=== PATIENT | male | born 1940 | race Hispanic/Latino ===

== ENCOUNTER 2019-09-19 00:24 | Inpatient (IN) | payer MEDICARE, OTHER ==
[2019-09-19] VITALS (7 sets, daily range): BP systolic 111–126; BP diastolic 66–80
[~2019-09-19] VITALS: Ht 170.2 cm; Wt 81.2 kg
[~2019-09-19 00:24] MED LIST: FLOMAX0.4 MG PO; LOSARTAN POTAS100 MG PO; LOVASTATIN40 MG PO; LUMIGAN2.5 M1 OP; VERAPAMIL ER120 MG PO
[2019-09-19] MEDS ORDERED: ACETAMINOPHEN 325 MG TAB PO ONE (00:30)
[2019-09-19] MEDS ORDERED: CEFEPIME 2 GM/NS 0.9% 100 ML 100 ML IV ONE (00:30)
[2019-09-19 01:03] LABS: BASOPHILS % 0.3 % (0.0-1.0); EOSINOPHILS # (AUTO) 0.1 (0.0-0.4); EOSINOPHILS % 0.9 % (0.0-6.0); HEMATOCRIT 35.4 % (38.2-49.6); LYMPHOCYTES # (AUTO) 0.5 (1.0-3.2); LYMPHOCYTES % 6.6 % (18.0-39.1); MEAN CORPUSCULAR HEMOGLOBIN 28.2 pg (28-32); MEAN CORPUSCULAR HGB CONC 33.9 g/dL (31-35); MEAN CORPUSCULAR VOLUME 83.1 fL (81-99); MONOCYTES # (AUTO) 0.3 (0.2-0.8); NEUTROPHILS # (AUTO) 5.9 (2.1-6.9); NEUTROPHILS % 86.8 % (38.7-80.0); PLATELET COUNT 153 x10e3/uL (140-360); RED BLOOD COUNT 4.26 x10e6/uL (4.3-5.7)
[2019-09-19 01:16] LABS: STREPTOCOCCUS GRP A ANTIGEN NEGATIVE (NEGATIVE)
[2019-09-19 01:23] LABS: INR 1.03; PARTIAL THROMBOPLASTIN TIME 28.5 seconds (23.8-35.5); PROTHROMBIN TIME 14.1 seconds (11.9-14.5)
[2019-09-19 01:25] LABS: INFLUENZAE A&B ANTIGEN (RAPID) NEGATIVE (NEGATIVE)
[2019-09-19 01:27] LABS: ALBUMIN 3.9 g/dL (3.5-5.0); ALBUMIN/GLOBULIN RATIO 1.1 (0.8-2.0); ANION GAP 9.5 mmol/L (8-16); CALCIUM 9.5 mg/dL (8.4-10.2); CREATININE, SERUM 1.22 mg/dL (0.72-1.25); POTASSIUM 3.5 mmol/L (3.5-5.1)
[2019-09-19 01:33] LABS: BILIRUBIN,URINE NEGATIVE (NEGATIVE); CLARITY,URINE CLOUDY (CLEAR); COLOR,URINE YELLOW (YELLOW); KETONES,URINE NEGATIVE (NEGATIVE); LEUKOCYTE ESTERASE ,URINE 1+ (NEGATIVE); NITRITE,URINE POSITIVE (NEGATIVE); PROTEIN,URINE DIPSTICK TRACE (NEGATIVE); URINE UROBILINOGEN 1 mg/dL (0.2 - 1)
[2019-09-19 01:42] LABS: BACTERIA,URINE MANY /HPF; EPITHELIAL CELLS,URINE FEW /LPF; WBC,URINE (MAN) >50 /HPF (0-5)
[2019-09-19 01:43] LABS: RENAL EPITHELIAL CELLS,URINE FEW
--- NOTE | 2019-09-19 01:58 | Diagnostic Imaging Report ---
EXAMINATION: CHEST SINGLE (PORTABLE) INDICATION: Fever COMPARISON: None FINDINGS: TUBES and LINES: None. LUNGS: Low lung volumes. There are patchy bibasilar opacities. Central vascular congestion. PLEURA: No pleural effusion or pneumothorax. HEART AND MEDIASTINUM: The cardiomediastinal silhouette is unremarkable. BONES AND SOFT TISSUES: No acute osseous lesion. Soft tissues are unremarkable. UPPER ABDOMEN: No free air under the diaphragm. IMPRESSION: Patchy bibasilar opacities, which may represent infection in the setting of fever. Atelectasis may have a similar appearance. Signed by: Dr. Radha Day MD on 09/19/2019 1:55 AM
--- OUTSIDE RECORDS SUMMARY | 2019-09-19 02:12 | XMS REPORT ---
[facility] Address Unknown Phone Unavailable Care Team Providers Care Wall Insulation Sprayer Name Role Phone Yue HURD Unavailable Unavailable Problems This patient has no known problems. Allergies, Adverse Reactions, Alerts This patient has no known allergies or adverse reactions. Medications This patient has no known medications. Results Test Description Test Time Test Comments Text Results Atomic Results Result Comments CHEST SINGLE (PORTABLE) 2019-09-19 01:47:00 [facility] [address] [place] [address] Patient Name: IRINA GUAN MR #: [id number] : 1940 Age/Sex: 79/M Req #: [id number] Adm Physician: Ordered by: KHALIDA HURD MD Report #: [id number] Location: ER Room/Bed: Procedure: [id number] DX/CHEST SINGLE (PORTABLE) Exam Date: 09/19/19 Exam Time: 0100 REPORT STATUS: Signed EXAMINATION: CHEST SINGLE (PORTABLE) INDICATION: Fever COMPARISON: None FINDINGS: TUBES and LINES: None. LUNGS: Low lung volumes. There are patchy bibasilar opacities. Central vascular congestion. PLEURA: No pleural effusion or pneumothorax. HEART AND MEDIASTINUM: The cardiomediastinal silhouette is unremarkable. BONES AND SOFT TISSUES: No acute osseous lesion. Soft tissues are unremarkable. UPPER ABDOMEN: No free air under the diaphragm. IMPRESSION: Patchy bibasilar opacities, which may represent infection in the setting of fever. Atelectasis may have a similar appearance. Signed by: Dr. Jackelin Leyva MD on 09/19/2019 1:55 AM Dictated By: JACKELIN LEYVA MD 4 Transcribed By: ASMITA on 09/19/19154 COPY TO: KHALIDA HURD MD
[2019-09-19] MEDS ORDERED: SODIUM CHLORIDE 0.9% 1000ML 1,000 ML IV ONE (02:15)
[2019-09-19] MEDS ORDERED: ONDANSETRON HCL INJ 2MG/ML 2ML 2 MG/ML VIAL IV PRN ×2 (02:15→09:45)
[2019-09-19] MEDS ORDERED: ACETAMINOPHEN 325 MG TAB PO PRN (02:15)
[2019-09-19] MEDS: AZITHROMYCIN 500MG/NS 250 ML 250 ML IV SCH (03:08)
[2019-09-19] MEDS ORDERED: POTASSIUM CHLO20 ME1 PO (05:43)
[2019-09-19] MEDS ORDERED: AMLODIPINE BESYL5 MG PO (05:43)
[2019-09-19] MEDS ORDERED: AVODART0.5 MG PO (05:43)
[2019-09-19] MEDS ORDERED: FUROSEMIDE40 MG PO (05:43)
[2019-09-19] MEDS ORDERED: CEFEPIME 2 GM/NS 0.9% 100 ML 100 ML IV SCH (06:00)
--- NOTE | 2019-09-19 06:40 | NUR ---
PATIENT ARRIVED TO FLOOR IN STABLE CONDITION, GAVE REPORT TO ONCOMING ADMIT NURSE TO COMPLETE ADMIT.
[2019-09-19] MEDS ORDERED: VANCOMYCIN 1GM/NS 250 ML 250 ML IV ONE (08:15)
[2019-09-19] MEDS: CEFEPIME 2 GM/NS 0.9% 100 ML 100 ML IV SCH ×3 (09:00→21:37)
--- NOTE | 2019-09-19 09:12 | Consultation ---
DATE OF CONSULTATION: Pulmonary Critical Care Consultation CHIEF COMPLAINT: Fever, chills, and confusion. HISTORY OF PRESENT ILLNESS: The patient is a 79-year-old man. He has a history of hearing loss, hypertension, and prostate disease. He came to the emergency department complaining of fatigue. He reports decreased appetite. He denies cough. He denies shortness of breath, nausea or vomiting. PAST MEDICAL HISTORY: 1. Benign prostatic hypertrophy. 2. Prior cardiac disease. 3. Hypertension. 4. Glaucoma. PAST SURGICAL HISTORY: Not obtainable at this time. SOCIAL HISTORY: The patient is not an active smoker or drinker. ALLERGIES: NO KNOWN DRUG ALLERGIES. REVIEW OF SYSTEMS: The patient is afebrile. He is not complaining of headache. He has no neck pain. He has no sore throat. He is not having any chest pain. He denies any shortness of breath or cough. He has no abdominal pain. He has no nausea or vomiting. He has no leg edema. He has no focal neurological abnormalities. PHYSICAL EXAMINATION: VITAL SIGNS: The patient is afebrile. The blood pressure is 117/68 and the saturation is 100% on 3 L. HEENT: Shows no facial swelling or erythema. CARDIAC: Reveals a regular rate and rhythm with normal S1, S2. LUNGS: Auscultation of lungs shows clear breath sounds bilaterally. There is no wheezing. ABDOMEN: Soft, nontender. There is no rebound or guarding. EXTREMITIES: Show no leg edema or calf tenderness. There is no cyanosis or clubbing. RADIOGRAPHIC DATA: Chest x-ray shows patchy bibasilar opacities. LABORATORY DATA: BUN to creatinine ratio is 13 to 1.22. The other electrolytes are within normal limits. The total bilirubin is 4.2 and the AST is 42. PT and INR are normal. Urinalysis shows greater than 50 white blood cells. IMPRESSION: 1. Pneumonia, unspecified. 2. Urinary tract infection with sepsis, present on admission. 3. Elevated total bilirubin. 4. Prostatic hypertrophy. 5. Hearing loss. PLAN: 1. Broad-spectrum antibiotics to cover for pneumonia and urinary tract infection. 2. Repeat laboratory values tomorrow including creatinine and bilirubin. 3. Head of bed as tolerated. 4. Continue oxygen. Rudi Pineda MD [facility]/MODL /[id number]
--- NOTE | 2019-09-19 09:36 | NUR ---
H&P cc: sob HPI: 79yoM, PCP unknown, developed sob, found to have multifocal PNA and UTI, with sepsis. Pt uanble to provide history. PMH: BPH, Hypertensive heart ds, CAD, hearing deficits PSHx: unknown Allergies; see emr FH/SH; unknown meds; see MAR rOS: unobtianable v/s revd PE tired appearing anicteric ns1s2 reduced BS soft ntnd no e/t skin dry flat affect alert; awake; hearing deficits labs/meds revd A/P: 79yoM Multifocal PNA- cefepime/azithromycin/vanco/IVF; coronavirus negative SWAPNA- IVF Severe sepsis- IVF UTI- IV cefepime Hyperbilirubinemia- check hepatitis panel BPH- flomax Hypertensive heart ds- hold losartan; cont ccb CAD- ccb; check lipids Hyperglycemia- screen for DM and HLD Overweight- check hab1c/lipids BMI 28 Prop: scd; pepcid dispo: Bob Anthony MD, PhD.
[2019-09-19] MEDS ORDERED: ZOLPIDEM TARTRATE 5 MG TAB PO PRN (09:45)
[2019-09-19] MEDS ORDERED: DOCUSATE SODIUM 100 MG CAP PO PRN (09:45)
--- NOTE | 2019-09-19 09:45 | NUR ---
The pt. is in bed and denies pain or discomfort. His daughter called and he spoke with her.
[2019-09-19 09:52] LABS: CREATINE KINASE MB 2.4 ng/mL (0-5.0)
[2019-09-19] MEDS: DUTASTERIDE 0.5 MG CAP PO SCH (09:53)
[2019-09-19] MEDS: TAMSULOSIN HCL 0.4 MG CAP PO SCH (09:53)
[2019-09-19] MEDS: AMLODIPINE BESYLATE 5 MG TAB PO SCH (09:53)
[2019-09-19 16:46] LABS: CREATINE KINASE MB 2.3 ng/mL (0-5.0)
--- NOTE | 2019-09-19 19:20 | NUR ---
RECEIVED THE PATIENT IN REPORT.LYEING IN THE BED.NO PAIN VOICED.DENIED ANY NEEDS.BED LOCKED AND IN LOWEST POSITION.STABLE CONDITION.
[2019-09-19] MEDS: BIMATOPROST(OPTH) 2.5 ML BOTTLE OP SCH (21:36)
[2019-09-19] MEDS: SIMVASTATIN 40 MG TAB PO SCH (21:37)
--- NOTE | 2019-09-19 21:59 | Consultation ---
DATE OF CONSULTATION: REASON FOR CONSULTATION: Fever. HISTORY OF PRESENT ILLNESS: A 79-year-old male with history of hearing loss, hypertension, prostate disease, came to the emergency room with fever, chills, fatigue, and not feeling well. The patient was admitted. I was asked to see him. Blood cultures obtained and urine cultures obtained. His white count was 6.79, hemoglobin 12. His COVID-19 was negative. Influenza A and B were negative. Sodium 137, potassium 3.5, creatinine of 1.22. REVIEW OF SYSTEMS: Otherwise negative. PHYSICAL EXAMINATION: GENERAL: He is currently alert, oriented, does not seem in acute distress. VITAL SIGNS: Stable. Currently afebrile. HEENT: He is not icteric. NECK: Supple. CHEST: Clear. HEART: S1 and S2. ABDOMEN: Soft. IMPRESSION: 1. Pneumonia present on admission. 2. Fever, concerned about urinary tract infection. PLAN: 1. Continue Rocephin. 2. Continue azithromycin. 3. Clinically, seems to be getting better. We will follow. MD YVES Decker/JEWELL /[id number]
[2019-09-20] VITALS (7 sets, daily range): BP systolic 117–131; BP diastolic 67–81
[2019-09-20] MEDS: AZITHROMYCIN 500MG/NS 250 ML 250 ML IV SCH (02:30)
[2019-09-20] MEDS: CEFEPIME 2 GM/NS 0.9% 100 ML 100 ML IV SCH ×3 (06:16→22:00)
[2019-09-20 06:31] LABS: BASOPHILS % 0.2 % (0.0-1.0); EOSINOPHILS % 0.9 % (0.0-6.0); HEMATOCRIT 32.6 % (38.2-49.6); HEMOGLOBIN 10.9 g/dL (14.0-18.0); LYMPHOCYTES # (AUTO) 0.9 (1.0-3.2); MEAN CORPUSCULAR HEMOGLOBIN 27.9 pg (28-32); MEAN CORPUSCULAR HGB CONC 33.4 g/dL (31-35); MEAN CORPUSCULAR VOLUME 83.6 fL (81-99); MONOCYTES # (AUTO) 0.5 (0.2-0.8); MONOCYTES % 10.9 % (4.4-11.3); NEUTROPHILS # (AUTO) 3.2 (2.1-6.9); NEUTROPHILS % 67.8 % (38.7-80.0); PLATELET COUNT 132 x10e3/uL (140-360); RED CELL DISTRIBUTION WIDTH 13.8 % (11.7-14.4)
[2019-09-20 06:52] LABS: ALANINE AMINOTRANSFERASE 32 IU/L (0-55); ALKALINE PHOSPHATASE 70 IU/L (40-150); ANION GAP 9.4 mmol/L (8-16); BLOOD UREA NITROGEN 13 mg/dL (7-26); BUN/CREATININE RATIO 14 (6-25); CALCIUM 8.3 mg/dL (8.4-10.2); CARBON DIOXIDE 26 mmol/L (22-29); CHLORIDE 108 mmol/L (98-107); CREATININE, SERUM 0.93 mg/dL (0.72-1.25); EST GLOMERULAR FILTRATION RATE > 60 ML/MIN (60-); GLUCOSE 97 mg/dL (74-118); POTASSIUM 3.4 mmol/L (3.5-5.1); SODIUM 140 mmol/L (136-145)
[2019-09-20 07:04] LABS: CREATINE KINASE 100 IU/L (30-200)
--- NOTE | 2019-09-20 07:05 | NUR ---
BED SIDE SHIFT REPORT GIVEN TO ONCOMING RN.STABLE CONDITION.
--- NOTE | 2019-09-20 08:01 | NUR ---
IM- progress note O/N see below ROS: unobtianable v/s revd PE tired appearing anicteric ns1s2 reduced BS soft ntnd no e/t skin dry flat affect alert; awake; hearing deficits labs/meds revd A/P: 79yoM Multifocal PNA- cefepime/azithromycin/vanco/IVF; coronavirus negative SWAPNA- IVF Severe sepsis- IVF UTI- IV cefepime Hyperbilirubinemia- check hepatitis panel BPH- flomax Hypertensive heart ds- hold losartan; cont ccb CAD- ccb; check lipids Hyperglycemia- screen for DM and HLD Overweight- check hab1c/lipids BMI 28 Prop: scd; pepcid dispo: 4-25 cont care; replace K; T.Bili improving; Bob Anthony MD, PhD.
[2019-09-20] MEDS ORDERED: POTASSIUM CHLORIDE 20 MEQ TAB CR PO STA (08:03)
[2019-09-20] MEDS: DUTASTERIDE 0.5 MG CAP PO SCH (09:31)
[2019-09-20] MEDS: AMLODIPINE BESYLATE 5 MG TAB PO SCH (09:31)
[2019-09-20] MEDS: TAMSULOSIN HCL 0.4 MG CAP PO SCH (09:31)
--- NOTE | 2019-09-20 13:42 | NUR ---
INFECTIOUS DISEASE PROGRESS NOTE SUBJECTIVE: The patient is doing well today. He was undergoing cystoscopies with the nephrostomy tube removal. ROS: Positive for fatigue Negative all 14 points unless otherwise noted. PHYSICAL EXAMINATION: VITAL SIGNS: Temperature is 97.7 pulse 70, respiratory rate 18, blood pressure 128/90, pulse ox 100% on room air. GENERAL: Not in acute distress. Alert and oriented x3. Cooperative on examination. HEENT: Head; normocephalic, atraumatic. Eyes; pupils are equal, round, and reactive to light bilaterally. Extraocular movements intact bilaterally. Throat; no evidence of erythema or exudates in the posterior pharynx. Has poor dentition. NECK: Supple. Good range of motion. PULMONARY: Clear to auscultation bilaterally. No wheezing, no rales, no rhonchi, no crackles appreciated. CARDIOVASCULAR: Positive S1 and S2. No murmurs, rubs, or gallops appreciated. ABDOMEN: Soft, nondistended, and nontender to palpation. Bowel sounds present. MUSCULOSKELETAL: Strength is 5/5 throughout. No evidence of any muscle deficits on examination. No weakness appreciated. NEUROLOGIC: Cranial nerve II through XII grossly intact. No evidence of any neurological deficits on exam. SKIN: Intact. Warm to touch. Good cap refill. PSYCHIATRIC: Normal affect and mood. EXTREMITIES: No edema. Good range of motion throughout. LABORATORY DATA: Reviewed and noted IMAGING STUDIES: Patchy bibasilar opacities, which may represent infection in the setting of fever. Atelectasis may have a similar appearance. IMPRESSION 1. Left ureteral nephrolithiasis stone status post cystoscopy with laser and left stent placement with left nephrostomy tube removal performed on 09/19/2019. 2. Sepsis secondary to bacteremia and ESBL E coli urinary tract infection. 3. Hypotension, resolved. 4. BPH 5. Glaucoma 6. Pnuemonia PLAN: 09/20/19: Cefepime and Flaygl, final urine culture pending. Blood cultures negative at this time. Afebrile. Supportive care. Discussed with Dr. Phu Guzmán
--- NOTE | 2019-09-20 14:20 | NUR ---
RECEIVED HH ORDER , DISCUSSED WITH PT, HE WAS IN AGREEMENT WITH THE PLAN, PT WAS INFORMED OF THE FREEDOM TO CHOOSE THE AGENCY, DISCUSSED LIST OF AGENCIES IN NETWORK WITH HIS INSURANCE, HE CHOSE [facility] - [id number].CHOICE LETTER SIGNED AND IS PLACED IN THE CHART. FAXED CLINICALS TO [facility] , FAX CONFIRMATION RECEIVED.
[2019-09-20] MEDS ORDERED: ONDANSETRON HCL 4 MG ORAL DISINTEGRATING TAB PO PRN (16:00)
--- NOTE | 2019-09-20 16:02 | Progress Note ---
DATE: SUBJECTIVE: The patient has no new complaints. He is afebrile. PHYSICAL EXAMINATION: VITAL SIGNS: The blood pressure is 117/71. The saturation is 100% on 2 L. HEENT: Shows no facial swelling or erythema. CARDIAC: Reveals a regular rate and rhythm with normal S1 and S2. There are no murmurs or rubs. LUNGS: Auscultation of lungs reveals clear breath sounds bilaterally. There is no wheezing. ABDOMEN: Soft and nontender. No rebound or guarding. The patient is hard of hearing. LABORATORY DATA: White blood cell count is 4.7 and the hemoglobin is 10.9. The platelet count is 132. BUN to creatinine ratio is normal. The other electrolytes are within normal limits. IMPRESSION: 1. Acute kidney injury. 2. Community-acquired pneumonia. 3. Urinary tract infection with sepsis, present on admission. 4. Prostatic hypertrophy. 5. Hypertension. 6. Hyperbilirubinemia. PLAN: 1. Complete current antibiotics. 2. Continue to monitor liver tests. 3. Await culture results. 4. Ativan as tolerated. Rudi Pineda MD [facility]/MOD[facility] /[id number]
--- NOTE | 2019-09-20 17:15 | NUR ---
PT IN BED SLEEPING NO DISTRESS NTOED,DENIES PAIN,
--- NOTE | 2019-09-20 20:03 | NUR ---
Received change of shift report from AM nurse. Walking rounds completed.
[2019-09-20] MEDS: SIMVASTATIN 40 MG TAB PO SCH (20:36)
[2019-09-20] MEDS: BIMATOPROST(OPTH) 2.5 ML BOTTLE OP SCH (20:36)
[2019-09-21] VITALS (7 sets, daily range): BP systolic 130–142; BP diastolic 68–89
--- NOTE | 2019-09-21 | NUR ---
Patient spainish speaking. Pt blind. Asst to bathroom with walker. Patient denies pain at this time. IV right FA intact and patent. Patient incontinent with depend. Continue monitor.
[2019-09-21] MEDS: AZITHROMYCIN 500MG/NS 250 ML 250 ML IV SCH (02:15)
--- NOTE | 2019-09-21 03:56 | NUR ---
Patient resting quitly at this time. Continue monitor.
[2019-09-21] MEDS: CEFEPIME 2 GM/NS 0.9% 100 ML 100 ML IV SCH (06:00)
[2019-09-21 07:16] LABS: ANION GAP 10.9 mmol/L (8-16); BLOOD UREA NITROGEN 15 mg/dL (7-26); BUN/CREATININE RATIO 17 (6-25); CALCIUM 8.8 mg/dL (8.4-10.2); CARBON DIOXIDE 26 mmol/L (22-29); CHLORIDE 108 mmol/L (98-107); CREATININE, SERUM 0.87 mg/dL (0.72-1.25); EST GLOMERULAR FILTRATION RATE > 60 ML/MIN (60-); GLUCOSE 98 mg/dL (74-118); POTASSIUM 3.9 mmol/L (3.5-5.1); SODIUM 141 mmol/L (136-145)
--- NOTE | 2019-09-21 07:30 | NUR ---
PT IN BED SLEEPING ,NO S/S DISCOMFORT.
[2019-09-21] MEDS: TAMSULOSIN HCL 0.4 MG CAP PO SCH (09:00)
[2019-09-21] MEDS: AMLODIPINE BESYLATE 5 MG TAB PO SCH (09:00)
[2019-09-21] MEDS: DUTASTERIDE 0.5 MG CAP PO SCH (09:00)
--- NOTE | 2019-09-21 09:22 | NUR ---
IM- progress note O/N see below ROS: unobtianable v/s revd PE tired appearing anicteric ns1s2 reduced BS soft ntnd no e/t skin dry flat affect alert; awake; hearing deficits labs/meds revd A/P: 79yoM Multifocal PNA- cefepime/azithromycin/vanco/IVF; coronavirus negative SWAPNA- IVF Severe sepsis- IVF UTI- IV cefepime Hyperbilirubinemia- check hepatitis panel BPH- flomax Hypertensive heart ds- hold losartan; cont ccb CAD- ccb; check lipids Hyperglycemia- screen for DM and HLD Overweight- check hab1c/lipids BMI 28 Prop: scd; pepcid dispo: 4-25 cont care; replace K; T.Bili improving; 4-26 E.coli UTI- abx per ID; d/c planning; Bob Anthony MD, PhD.
--- NOTE | 2019-09-21 12:30 | NUR ---
PT ASSISTED UP TO BR MIN ASSIST
--- NOTE | 2019-09-21 12:36 | NUR ---
INFECTIOUS DISEASE PROGRESS NOTE SUBJECTIVE: The patient is doing well today. ROS: Positive for fatigue Negative all 14 points unless otherwise noted. PHYSICAL EXAMINATION: VITAL SIGNS: Temperature is 97.6 pulse 72, respiratory rate 18, blood pressure 137/850 GENERAL: Not in acute distress. Alert and oriented x3. Cooperative on examination. HEENT: Head; normocephalic, atraumatic. Eyes; pupils are equal, round, and reactive to light bilaterally. Extraocular movements intact bilaterally. Throat; no evidence of erythema or exudates in the posterior pharynx. Has poor dentition. NECK: Supple. Good range of motion. PULMONARY: Clear to auscultation bilaterally. No wheezing, no rales, no rhonchi, no crackles appreciated. CARDIOVASCULAR: Positive S1 and S2. No murmurs, rubs, or gallops appreciated. ABDOMEN: Soft, nondistended, and nontender to palpation. Bowel sounds present. MUSCULOSKELETAL: Strength is 5/5 throughout. No evidence of any muscle deficits on examination. No weakness appreciated. NEUROLOGIC: Cranial nerve II through XII grossly intact. No evidence of any neurological deficits on exam. SKIN: Intact. Warm to touch. Good cap refill. PSYCHIATRIC: Normal affect and mood. EXTREMITIES: No edema. Good range of motion throughout. LABORATORY DATA: Reviewed and noted IMAGING STUDIES: Patchy bibasilar opacities, which may represent infection in the setting of fever. Atelectasis may have a similar appearance. IMPRESSION 1. Left ureteral nephrolithiasis stone status post cystoscopy with laser and left stent placement with left nephrostomy tube removal performed on 09/19/2019. 2. Sepsis secondary to bacteremia and ESBL E coli urinary tract infection. 3. Hypotension, resolved. 4. BPH 5. Glaucoma 6. Pnuemonia PLAN: 09/21/19 Reviewed culture results. Can change to Rocephin while hospitalized. Finish 3 days of azithromycin. Repeat CXR in AM. Can potentially discharge with oral antibiotics when primary team is ready. 09/20/19: Cefepime and Flagyl, final urine culture pending. Blood cultures negative at this time. Afebrile. Supportive care. Discussed with Dr. Phu Guzmán
[2019-09-21] MEDS ORDERED: CEFTRIAXONE SOD 1 GM/NS 50 ML 50 ML IV SCH (12:45)
--- NOTE | 2019-09-21 17:30 | NUR ---
UP IN BED DENIES PAIN ,NO DISTRESS NTOED.
--- NOTE | 2019-09-21 18:36 | Progress Note ---
DATE: SUBJECTIVE: The patient has no new complaints. He denies any fever. He has not been out of bed walking yet. He denies nausea or vomiting. He denies abdominal pain or dysuria. PHYSICAL EXAMINATION: VITAL SIGNS: The patient is afebrile. The blood pressure is 142/68 and saturation is 98%. The pulse is 84. HEENT: Shows no facial swelling or erythema. CARDIAC: Reveals regular rate and rhythm with normal S1 and S2. LUNGS: Auscultation of lungs reveals decreased breath sounds at the bases. There is no wheezing. ABDOMEN: Soft and nontender. There is no rebound or guarding. EXTREMITIES: Shows no leg edema or calf tenderness. LABORATORY DATA: Electrolytes, BUN and creatinine are within normal limits. IMPRESSION: 1. Escherichia coli urinary tract infection with sepsis, present on admission. 2. Community-acquired pneumonia. 3. Acute kidney injury. 4. Prostatic hypertrophy. 5. Hyperbilirubinemia. PLAN: 1. Complete current antibiotics. 2. Repeat chemistries tomorrow to monitor bilirubin and kidney function. 3. Repeat CBC tomorrow morning. 4. Continue to monitor blood pressure. 5. Out of bed as tolerated. MD MARIE Garcia/JEWELL /[id number]
--- NOTE | 2019-09-21 20:00 | NUR ---
Received change of shift report from AM nurse. Walking rounds completed.
[2019-09-21] MEDS: SIMVASTATIN 40 MG TAB PO SCH (21:00)
[2019-09-21] MEDS: BIMATOPROST(OPTH) 2.5 ML BOTTLE OP SCH (21:00)
[2019-09-22] VITALS: BP 138/69
[2019-09-22] MEDS: AZITHROMYCIN 500MG/NS 250 ML 250 ML IV SCH (02:15)
[2019-09-22 04:00] VITALS: BP 128/70
[2019-09-22 05:42] LABS: BASOPHILS % 0.4 % (0.0-1.0); EOSINOPHILS # (AUTO) 0.2 (0.0-0.4); EOSINOPHILS % 3.6 % (0.0-6.0); HEMATOCRIT 31.3 % (38.2-49.6); HEMOGLOBIN 10.6 g/dL (14.0-18.0); LYMPHOCYTES # (AUTO) 1.4 (1.0-3.2); MEAN CORPUSCULAR HEMOGLOBIN 27.8 pg (28-32); MEAN CORPUSCULAR HGB CONC 33.9 g/dL (31-35); MEAN CORPUSCULAR VOLUME 82.2 fL (81-99); MONOCYTES # (AUTO) 0.5 (0.2-0.8); MONOCYTES % 10.1 % (4.4-11.3); NEUTROPHILS # (AUTO) 3.1 (2.1-6.9); NEUTROPHILS % 58.5 % (38.7-80.0); PLATELET COUNT 160 x10e3/uL (140-360); RED BLOOD COUNT 3.81 x10e6/uL (4.3-5.7); RED CELL DISTRIBUTION WIDTH 13.5 % (11.7-14.4)
[2019-09-22 06:16] LABS: ALANINE AMINOTRANSFERASE 22 IU/L (0-55); ALBUMIN/GLOBULIN RATIO 0.9 (0.8-2.0); ALKALINE PHOSPHATASE 76 IU/L (40-150); ANION GAP 9.5 mmol/L (8-16); BLOOD UREA NITROGEN 18 mg/dL (7-26); BUN/CREATININE RATIO 20 (6-25); CALCIUM 8.7 mg/dL (8.4-10.2); CARBON DIOXIDE 26 mmol/L (22-29); CHLORIDE 108 mmol/L (98-107); CREATININE, SERUM 0.92 mg/dL (0.72-1.25); EST GLOMERULAR FILTRATION RATE > 60 ML/MIN (60-); GLUCOSE 98 mg/dL (74-118); POTASSIUM 3.5 mmol/L (3.5-5.1); SODIUM 140 mmol/L (136-145)
[2019-09-22] MEDS ORDERED: KEFLEX500 MG PO (06:36)
[2019-09-22] MEDS ORDERED: ZITHROMAX500 MG PO (06:36)
--- NOTE | 2019-09-22 06:40 | NUR ---
D/C summary Principal Dx: Multifocal PNA- cefepime/azithromycin/vanco/IVF; coronavirus negative SWAPNA- IVF Severe sepsis- IVF UTI- IV cefepime Hyperbilirubinemia- check hepatitis panel [place]condary dx: BPH- flomax Hypertensive heart ds- hold losartan; cont ccb CAD- ccb; check lipids Hyperglycemia- screen for DM and HLD Overweight- check hab1c/lipids BMI 28 Prop: scd; pepcid dispo: 4-25 cont care; replace K; T.Bili improving; 4-26 E.coli UTI- abx per ID; d/c planning; f/u pcp 1 week stable d/c>35mins d/c home with azithromycin and keflex for 4 more days; Bob Anthony MD, PhD.
--- NOTE | 2019-09-22 07:00 | NUR ---
Received bedside shift report from off going nurse. Patient is resting in bed. No acute distress noted. Call light within reach. Bed in the lowest position. Bed alarm on.
[2019-09-22 08:20] VITALS: BP 130/65
[2019-09-22 08:26] VITALS: BP 130/65
[2019-09-22] MEDS: DUTASTERIDE 0.5 MG CAP PO SCH (08:27)
[2019-09-22] MEDS: TAMSULOSIN HCL 0.4 MG CAP PO SCH (08:28)
[2019-09-22] MEDS: AMLODIPINE BESYLATE 5 MG TAB PO SCH (08:28)
--- NOTE | 2019-09-22 09:57 | Diagnostic Imaging Report ---
EXAMINATION: CHEST SINGLE (PORTABLE) INDICATION: Pneumonia COMPARISON: Chest radiograph 09/19/2019 FINDINGS: LINES/TUBES:EKG leads overlie the chest. LUNGS:The lungs are moderately inflated. There is perihilar fullness and indistinctness of the pulmonary vasculature. No focal consolidation. PLEURA:No pleural effusion or pneumothorax. MEDIASTINUM:The cardiomediastinal silhouette appears normal in size and shape. Atherosclerotic calcifications of the thoracic aorta. BONES/SOFT TISSUES:No acute osseous injury. ABDOMEN:No free air under the diaphragm. IMPRESSION: Mild central pulmonary vascular congestion. No focal pneumonia. Signed by: Lissette Pugh MD on 09/22/2019 9:54 AM
[2019-09-22 11:00] VITALS: BP 128/72
--- NOTE | 2019-09-22 11:19 | NUR ---
Received discharge order from Dr. Anthony, patient is in stable condition. No IV line present upon arrival to shift. Discharge teaching provided to daughter Saniya Gallardo over the phone, also paperwork signed by daughter via phone. Discharge folder on hand with discharge paperwork and prescriptions. All personal items on hand. Patient accompanied to private auto via wheelchair by staff.
--- NOTE | 2019-09-22 11:58 | Progress Note ---
DATE: SUBJECTIVE: The patient is seen and evaluated. Discussed with the nurse. Currently comfortable in bed. REVIEW OF SYSTEMS: No nausea, no vomiting, no fever, no chills, no chest pain, no shortness of breath. PHYSICAL EXAMINATION: VITAL SIGNS: Temperature is 99.8, pulse is 79, respirations 18, and blood pressure 130/65. GENERAL: Comfortable in bed. Legally blind. CV: S1 and S2. CHEST: Equal expansion. Clear to auscultation. No acute distress. ABDOMEN: Soft and nontender. No distention. HEENT: Moist. No pallor. No JVD. EXTREMITIES: No significant edema. No acute finding. MEDICATIONS: Medications reviewed. As far as Infectious Disease point of view, the patient is on Rocephin and Zithromax. LABORATORY STUDIES: White blood cells 5.23, hemoglobin 10.6, platelet 160. Sodium 140, potassium 3.5 creatinine 0.92. SEROLOGY: COVID-19 not detected on 09/19/2019. Hepatitis panel pending. Influenza A/B antigen and group A strep screen is negative. MICROBIOLOGY: Urine cultures E coli. Blood cultures negative. Throat cultures negative. Urine culture E coli was on 09/19/2019. RADIOLOGY STUDIES: Chest x-ray showed mild central pulmonary vascular congestion. No focal pneumonia. ASSESSMENT AND PLAN: 1. Sepsis on admission, resolved. 2. Abnormal urine culture as mentioned above. 3. Hypertension. 4. Benign prostatic hypertrophy. 5. Discharge planning in progress with oral antibiotics. Discussed with Dr. Bay in details. Please refer to chart for more information. Dictated by Anthony Jerry PA-C (Al) Daniel Bay MD /MODL /[id number]
== END 2019-09-22 11:23 | disposition home or self-care (01) | DRG 871 ==
LOC: ER 00:24 → ERHOLD 02:05 → MED/SURG3 06:16
PROVIDERS: ADMIT Internal Medicine; ATTEND Internal Medicine
DX: A41.51 Sepsis due to Escherichia coli [E. coli] (principal); J18.9 Pneumonia, unspecified organism; N39.0 Urinary tract infection, site not specified; N40.0 Benign prostatic hyperplasia without lower urinary tract symptoms; I10 Essential (primary) hypertension; H40.9 Unspecified glaucoma; H91.90 Unspecified hearing loss, unspecified ear; E80.6 Other disorders of bilirubin metabolism
CPT/HCPCS: 36415; 71045; 80048; 80053; 81001; 82550; 82553; 83518; 83605; 84484; 85025; 85610; 85730; 87040; 87070; 87086; 87186; 87400; 87635; 93005; 99284; J0456; J3370; J7030

== ENCOUNTER 2021-05-09 18:26 | Inpatient (IN) | payer MEDICARE ==
[~2021-05-09] VITALS: Ht 170.2 cm; Wt 81.2 kg
[~2021-05-09 18:26] MED LIST changes: +AMLODIPINE BESYL5 MG PO; +AVODART0.5 MG PO; +FUROSEMIDE40 MG PO; +KEFLEX500 MG PO; +POTASSIUM CHLO20 ME1 PO; +ZITHROMAX500 MG PO
[2021-05-09] MEDS ORDERED: SODIUM CHLORIDE 0.9% 1000ML 1,000 ML IV STA (18:45)
[2021-05-09] MEDS ORDERED: PIPERACILLIN/TAZOBACTAM 3.375 GM in SODIUM CHLORIDE 0.9% 50ML 50 ML IV STA (18:45)
[2021-05-09] MEDS ORDERED: ACETAMINOPHEN 325 MG TAB PO STA (18:47)
[2021-05-09 19:20] LABS: BASOPHILS % 0.2 % (0.0-1.0); EOSINOPHILS % 0.1 % (0.0-6.0); HEMATOCRIT 36.5 % (38.2-49.6); LYMPHOCYTES % 7.7 % (18.0-39.1); MEAN CORPUSCULAR HEMOGLOBIN 27.8 pg (28-32); MEAN CORPUSCULAR HGB CONC 32.9 g/dL (31-35); MEAN CORPUSCULAR VOLUME 84.7 fL (81-99); MONOCYTES % 7.2 % (4.4-11.3); NEUTROPHILS # (AUTO) 11.2 (2.1-6.9); NEUTROPHILS % 84.4 % (38.7-80.0); PLATELET COUNT 174 x10e3/uL (140-360); RED BLOOD COUNT 4.31 x10e6/uL (4.3-5.7); RED CELL DISTRIBUTION WIDTH 13.9 % (11.7-14.4)
[2021-05-09 19:34] LABS: ALBUMIN 3.9 g/dL (3.5-5.0); ALBUMIN/GLOBULIN RATIO 1.3 (0.8-2.0); ANION GAP 13.9 mmol/L (8-16); CALCIUM 8.7 mg/dL (8.4-10.2); CREATININE, SERUM 1.29 mg/dL (0.72-1.25); POTASSIUM 3.9 mmol/L (3.5-5.1)
[2021-05-09 19:41] LABS: CREATINE KINASE MB 0.4 ng/mL (0-5.0)
[2021-05-09] MEDS ORDERED: SODIUM CHLORIDE 0.9% 1000ML 1,000 ML IV SCH (20:15)
[2021-05-09 20:37] LABS: CLARITY,URINE CLOUDY (CLEAR); COLOR,URINE YELLOW (YELLOW); LEUKOCYTE ESTERASE ,URINE SMALL (NEGATIVE); NITRITE,URINE POSITIVE (NEGATIVE)
[2021-05-09 20:38] LABS: KETONES,URINE NEGATIVE (NEGATIVE); PROTEIN,URINE DIPSTICK NEGATIVE (NEGATIVE); URINE UROBILINOGEN 0.2 mg/dL (0.2 - 1)
[2021-05-09 20:44] LABS: BACTERIA,URINE MANY /HPF; EPITHELIAL CELLS,URINE MANY /LPF; RBC,URINE >50 /HPF (0-5); WBC,URINE (MAN) >50 /HPF (0-5)
[2021-05-10] VITALS (7 sets, daily range): BP systolic 116–129; BP diastolic 69–73
[2021-05-10] MEDS ORDERED: ACETAMINOPHEN 325 MG TAB PO PRN (01:00)
[2021-05-10] MEDS ORDERED: MELATONIN 5 MG TABLET PO PRN (01:00)
[2021-05-10] MEDS ORDERED: DOCUSATE SODIUM 100 MG CAP PO PRN (01:00)
[2021-05-10] MEDS ORDERED: HYDRALAZINE HCL 20 MG/ML VIAL IV PRN (01:00)
[2021-05-10] MEDS ORDERED: LIDOCAINE 4% PATCH TP PRN (01:00)
[2021-05-10] MEDS ORDERED: POTASSIUM CHLORIDE 20 MEQ TAB CR PO PRN (01:00)
[2021-05-10] MEDS ORDERED: DIPHENHYDRAMINE HCL 25 MG CAP PO PRN (01:00)
[2021-05-10] MEDS ORDERED: MEROPENEM 500 MG in SODIUM CHLORIDE 0.9% 50ML 50 ML IV SCH (01:00)
[2021-05-10] MEDS ORDERED: SIMETHICONE 80 MG CHEW PO PRN (01:00)
[2021-05-10] MEDS ORDERED: ALBUTEROL/IPRATROPIUM 3 ML NEB NEB PRN (01:00)
[2021-05-10] MEDS ORDERED: TRAMADOL HCL 50 MG TAB PO PRN (01:00)
[2021-05-10] MEDS ORDERED: MIDODRINE 2.5 MG TAB PO ONE (01:00)
[2021-05-10] MEDS ORDERED: DEXTROSE 50% SYRINGE 50 ML IV PRN (01:00)
[2021-05-10] MEDS ORDERED: ONDANSETRON HCL INJ 2MG/ML 2ML 2 MG/ML VIAL IV PRN (01:00)
[2021-05-10] MEDS ORDERED: BENZONATATE 100 MG CAP PO PRN (01:00)
[2021-05-10 03:52] LABS: CREATINE KINASE MB 0.5 ng/mL (0-5.0)
[2021-05-10 06:11] LABS: BASOPHILS % 0.3 % (0.0-1.0); EOSINOPHILS # (AUTO) 0.1 (0.0-0.4); EOSINOPHILS % 0.5 % (0.0-6.0); HEMATOCRIT 31.2 % (38.2-49.6); HEMOGLOBIN 10.4 g/dL (14.0-18.0); LYMPHOCYTES # (AUTO) 1.6 (1.0-3.2); LYMPHOCYTES % 15.1 % (18.0-39.1); MEAN CORPUSCULAR HEMOGLOBIN 27.7 pg (28-32); MEAN CORPUSCULAR HGB CONC 33.3 g/dL (31-35); MONOCYTES # (AUTO) 0.7 (0.2-0.8); MONOCYTES % 6.3 % (4.4-11.3); NEUTROPHILS # (AUTO) 8.2 (2.1-6.9); NEUTROPHILS % 77.4 % (38.7-80.0); PLATELET COUNT 138 x10e3/uL (140-360); RED BLOOD COUNT 3.76 x10e6/uL (4.3-5.7)
[2021-05-10 06:45] LABS: ALBUMIN 3.1 g/dL (3.5-5.0); ALBUMIN/GLOBULIN RATIO 1.1 (0.8-2.0); ANION GAP 9.5 mmol/L (8-16); CALCIUM 8.1 mg/dL (8.4-10.2); CREATININE, SERUM 1.01 mg/dL (0.72-1.25); POTASSIUM 3.5 mmol/L (3.5-5.1)
[2021-05-10] MEDS: PANTOPRAZOLE SOD 40 MG TABEC PO SCH (08:32)
[2021-05-10] MEDS: SODIUM CHLORIDE 0.9% 1000ML 1,000 ML IV SCH ×3 (08:32→21:43)
[2021-05-10] MEDS: MEROPENEM 500 MG in SODIUM CHLORIDE 0.9% 50ML 50 ML IV SCH ×2 (12:00→20:00)
[2021-05-10 12:49] LABS: CREATINE KINASE MB 1.3 ng/mL (0-5.0)
[2021-05-10] MEDS: ENOXAPARIN SOD INJ 40 MG/0.4 ML SYR SC SCH (16:40)
[2021-05-10 18:42] LABS: CREATINE KINASE MB 1.5 ng/mL (0-5.0)
[2021-05-10] MEDS: SIMVASTATIN 20 MG TAB PO SCH (20:25)
[2021-05-11] VITALS (7 sets, daily range): BP systolic 125–132; BP diastolic 72–86
[2021-05-11] MEDS: MEROPENEM 500 MG in SODIUM CHLORIDE 0.9% 50ML 50 ML IV SCH ×3 (03:03→20:48)
[2021-05-11] MEDS: TAMSULOSIN HCL 0.4 MG CAP PO SCH (08:21)
[2021-05-11] MEDS: PANTOPRAZOLE SOD 40 MG TABEC PO SCH (08:21)
[2021-05-11] MEDS ORDERED: AMLODIPINE BESYLATE 5 MG TAB PO SCH (09:00)
[2021-05-11] MEDS ORDERED: LOSARTAN POTASSIUM 100 MG TAB PO SCH (09:00)
[2021-05-11] MEDS ORDERED: ONDANSETRON HCL 4 MG ORAL DISINTEGRATING TAB PO PRN (10:00)
[2021-05-11] MEDS: DUTASTERIDE 0.5 MG CAP PO SCH (11:19)
[2021-05-11] MEDS: SODIUM CHLORIDE 0.9% 1000ML 1,000 ML IV SCH (13:27)
[2021-05-11] MEDS: ENOXAPARIN SOD INJ 40 MG/0.4 ML SYR SC SCH (16:42)
[2021-05-11] MEDS: SIMVASTATIN 20 MG TAB PO SCH (20:48)
[2021-05-12] VITALS (7 sets, daily range): BP systolic 128–140; BP diastolic 77–91
[2021-05-12] MEDS: SODIUM CHLORIDE 0.9% 1000ML 1,000 ML IV SCH (02:38)
[2021-05-12] MEDS: MEROPENEM 500 MG in SODIUM CHLORIDE 0.9% 50ML 50 ML IV SCH ×3 (04:00→20:38)
[2021-05-12] MEDS: PANTOPRAZOLE SOD 40 MG TABEC PO SCH (09:47)
[2021-05-12] MEDS: DUTASTERIDE 0.5 MG CAP PO SCH (09:47)
[2021-05-12] MEDS: TAMSULOSIN HCL 0.4 MG CAP PO SCH (09:47)
[2021-05-12] MEDS: ENOXAPARIN SOD INJ 40 MG/0.4 ML SYR SC SCH (16:19)
[2021-05-12] MEDS: SIMVASTATIN 20 MG TAB PO SCH (20:38)
[2021-05-13 01:18] VITALS: BP 153/86
[2021-05-13] MEDS: MEROPENEM 500 MG in SODIUM CHLORIDE 0.9% 50ML 50 ML IV SCH (04:26)
[2021-05-13 05:06] LABS: BASOPHILS % 0.5 % (0.0-1.0); EOSINOPHILS # (AUTO) 0.2 (0.0-0.4); EOSINOPHILS % 4.8 % (0.0-6.0); HEMATOCRIT 30.7 % (38.2-49.6); HEMOGLOBIN 10.6 g/dL (14.0-18.0); LYMPHOCYTES # (AUTO) 1.5 (1.0-3.2); LYMPHOCYTES % 33.3 % (18.0-39.1); MEAN CORPUSCULAR HEMOGLOBIN 27.8 pg (28-32); MEAN CORPUSCULAR HGB CONC 34.5 g/dL (31-35); MEAN CORPUSCULAR VOLUME 80.6 fL (81-99); MONOCYTES # (AUTO) 0.5 (0.2-0.8); MONOCYTES % 10.3 % (4.4-11.3); NEUTROPHILS # (AUTO) 2.2 (2.1-6.9); NEUTROPHILS % 50.6 % (38.7-80.0); PLATELET COUNT 183 x10e3/uL (140-360); RED BLOOD COUNT 3.81 x10e6/uL (4.3-5.7); RED CELL DISTRIBUTION WIDTH 13.2 % (11.7-14.4)
[2021-05-13 05:27] LABS: ANION GAP 11.6 mmol/L (8-16); CALCIUM 8.2 mg/dL (8.4-10.2); CREATININE, SERUM 0.77 mg/dL (0.72-1.25); POTASSIUM 3.6 mmol/L (3.5-5.1)
[2021-05-13 06:07] VITALS: BP 140/78
[2021-05-13] MEDS: PANTOPRAZOLE SOD 40 MG TABEC PO SCH (08:43)
[2021-05-13] MEDS: TAMSULOSIN HCL 0.4 MG CAP PO SCH (08:44)
[2021-05-13] MEDS: DUTASTERIDE 0.5 MG CAP PO SCH (08:44)
[2021-05-13 09:03] VITALS: BP 130/81
[2021-05-13 09:25] VITALS: BP 130/81
[2021-05-13] MEDS ORDERED: FOSFOMYCIN TROMETHAMINE 3 GM PACKET PO ONE (12:30)
== END 2021-05-13 13:45 | disposition home or self-care (01) | DRG 690 ==
LOC: ER 18:31 → ERHOLD 20:16 → OBSVTOIN 20:16 → IMCU 05-10 06:30 → MED/SURG2 05-11 17:15
PROVIDERS: ADMIT Internal Medicine; ATTEND Internal Medicine
DX: N39.0 Urinary tract infection, site not specified (principal); N17.9 Acute kidney failure, unspecified; Z16.12 Extended spectrum beta lactamase (ESBL) resistance; I25.10 Atherosclerotic heart disease of native coronary artery without angina pectoris; E78.5 Hyperlipidemia, unspecified; I11.0 Hypertensive heart disease with heart failure; I50.9 Heart failure, unspecified; E86.0 Dehydration; B96.20 Unspecified Escherichia coli [E. coli] as the cause of diseases classified elsewhere; N40.0 Benign prostatic hyperplasia without lower urinary tract symptoms; H40.9 Unspecified glaucoma; E66.9 Obesity, unspecified; Z68.28 Body mass index [BMI] 28.0-28.9, adult; Z20.822 Contact with and (suspected) exposure to COVID-19; M47.896 Other spondylosis, lumbar region; W19.XXXA Unspecified fall, initial encounter
CPT/HCPCS: 36415; 70450; 71045; 73521; 80048; 80053; 81001; 82550; 82553; 83605; 83735; 83880; 84145; 84443; 84484; 85025; 87040; 87086; 87186; 93005; 94799; 97139; 99251; 99284; J1650; J2185; J2543; J7030; U0002

== ENCOUNTER 2024-06-14 08:36 | Inpatient (IN) | payer MEDICARE ==
[2024-06-14] VITALS (7 sets, daily range): BP systolic 116–133; BP diastolic 64–79; PULSE 79–88; RESP 16–19; TEMP 97.8–98.9; O2SAT 92–100
[~2024-06-14] VITALS: Ht 170.2 cm; Wt 81.2 kg
[2024-06-14 09:35] LABS: BASOPHILS % 0.5 % (0.0-1.0); EOSINOPHILS % 0.2 % (0.0-6.0); HEMATOCRIT 35.1 % (38.2-49.6); LYMPHOCYTES # (AUTO) 0.4 (1.0-3.2); LYMPHOCYTES % 8.6 % (18.0-39.1); MEAN CORPUSCULAR HGB CONC 31.3 g/dL (31-35); MEAN CORPUSCULAR VOLUME 89.3 fL (81-99); MONOCYTES # (AUTO) 0.4 (0.2-0.8); MONOCYTES % 9.5 % (4.4-11.3); NEUTROPHILS # (AUTO) 3.6 (2.1-6.9); NEUTROPHILS % 80.5 % (38.7-80.0); PLATELET COUNT 163 x10e3/uL (140-360); RED BLOOD COUNT 3.93 x10e6/uL (4.3-5.7); RED CELL DISTRIBUTION WIDTH 13.8 % (11.7-14.4); WHITE BLOOD COUNT 4.44 x10e3/uL (4.8-10.8)
[2024-06-14 09:37] LABS: INFLUENZA A AG POSITIVE (NEGATIVE)
[2024-06-14 09:38] LABS: CORONAVIRUS COVID-19 AG NEGATIVE (NEGATIVE); INFLUENZA B AG NEGATIVE (NEGATIVE)
[2024-06-14 09:48] LABS: ALBUMIN/GLOBULIN RATIO 1.3 (0.8-2.0); ANION GAP 16.3 mmol/L (8-16); BILIRUBIN,TOTAL 2.5 mg/dL (0.2-1.2); CALCIUM 9.7 mg/dL (8.4-10.2); CREATININE, SERUM 1.28 mg/dL (0.72-1.25); POTASSIUM 4.3 mmol/L (3.5-5.1)
[2024-06-14 10:04] LABS: INR 1.18; PARTIAL THROMBOPLASTIN TIME 30.5 seconds (23.8-35.5); PROTHROMBIN TIME 15.7 seconds (11.9-14.5)
[2024-06-14] MEDS: CEFTRIAXONE 2 GM in SODIUM CHLORIDE 0.9% 100 ML IV ONE (10:09)
[2024-06-14] MEDS: OSELTAMIVIR PHOSPHATE 75 MG CAP PO SCH (10:10)
[2024-06-14] MEDS: SODIUM CHLORIDE 0.9% 1000ML 2,250 ML IV SCH (10:10)
[2024-06-14 10:47] LABS: BILIRUBIN,URINE NEGATIVE (NEGATIVE); CLARITY,URINE CLEAR (CLEAR); COLOR,URINE YELLOW (YELLOW); GLUCOSE, URINE NEGATIVE (NEGATIVE); KETONES,URINE NEGATIVE (NEGATIVE); LEUKOCYTE ESTERASE ,URINE NEGATIVE (NEGATIVE); NITRITE,URINE NEGATIVE (NEGATIVE); PH,URINE 5.5 (5 - 7); PROTEIN,URINE DIPSTICK 1+ (NEGATIVE); URINE UROBILINOGEN 0.2 mg/dL (0.2 - 1)
[2024-06-14 11:06] LABS: BACTERIA,URINE FEW /HPF; EPITHELIAL CELLS,URINE FEW /LPF; MUCUS,URINE MODERATE (RARE)
[2024-06-14] MEDS: SODIUM CHLORIDE 0.9% 1000ML 1,000 ML IV SCH (13:34)
[2024-06-14 14:43] LABS: TROPONIN I 0.016 ng/mL (0-0.300)
[2024-06-14] MEDS ORDERED: CEFUROXIME250 MG PO (18:14)
[2024-06-14] MEDS ORDERED: VESICARE5 MG PO (18:14)
[2024-06-15] VITALS (20 sets, daily range): BP systolic 123–136; BP diastolic 64–88; PULSE 53–80; RESP 17–18; TEMP 97.3–99.4; O2SAT 94–100
[2024-06-15 18:37] LABS: BASOPHILS % 0.3 % (0.0-1.0); HEMATOCRIT 30.3 % (38.2-49.6); HEMOGLOBIN 9.5 g/dL (14.0-18.0); LYMPHOCYTES # (AUTO) 0.8 (1.0-3.2); LYMPHOCYTES % 21.4 % (18.0-39.1); MEAN CORPUSCULAR HEMOGLOBIN 27.8 pg (28-32); MEAN CORPUSCULAR HGB CONC 31.4 g/dL (31-35); MEAN CORPUSCULAR VOLUME 88.6 fL (81-99); MONOCYTES # (AUTO) 0.3 (0.2-0.8); MONOCYTES % 8.5 % (4.4-11.3); NEUTROPHILS # (AUTO) 2.4 (2.1-6.9); NEUTROPHILS % 69.5 % (38.7-80.0); PLATELET COUNT 113 x10e3/uL (140-360); RED BLOOD COUNT 3.42 x10e6/uL (4.3-5.7); WHITE BLOOD COUNT 3.51 x10e3/uL (4.8-10.8)
[2024-06-15 19:05] LABS: ALBUMIN 2.8 g/dL (3.5-5.0); ALBUMIN/GLOBULIN RATIO 1.2 (0.8-2.0); ANION GAP 12.4 mmol/L (8-16); BILIRUBIN,TOTAL 1.7 mg/dL (0.2-1.2); CALCIUM 7.6 mg/dL (8.4-10.2); CREATININE, SERUM 0.85 mg/dL (0.72-1.25); TOTAL PROTEIN 5.1 g/dL (6.5-8.1)
[2024-06-15 19:08] LABS: POTASSIUM 3.4 mmol/L (3.5-5.1)
[2024-06-15 19:12] LABS: TROPONIN I 0.05 ng/mL (0-0.300)
[2024-06-16] VITALS (15 sets, daily range): BP systolic 130–170; BP diastolic 67–83; PULSE 51–80; RESP 17–21; TEMP 97.6–98.8; O2SAT 96–100
[2024-06-16 07:23] LABS: TROPONIN I 0.094 ng/mL (0-0.300)
[2024-06-16] MEDS: ACETAMINOPHEN 325 MG TAB PO PRN (08:08)
[2024-06-17] VITALS (7 sets, daily range): BP systolic 145–164; BP diastolic 77–93; PULSE 64–87; RESP 18–20; TEMP 97–98.5; O2SAT 98–100
[2024-06-17] MEDS: GUAIFENESIN/CODEINE 5 ML LIQD PO PRN (10:37)
[2024-06-17 18:14] LABS: BASOPHILS % 0.3 % (0.0-1.0); EOSINOPHILS % 0.1 % (0.0-6.0); HEMATOCRIT 45.4 % (38.2-49.6); HEMOGLOBIN 14.3 g/dL (14.0-18.0); LYMPHOCYTES # (AUTO) 1.8 (1.0-3.2); LYMPHOCYTES % 22.5 % (18.0-39.1); MEAN CORPUSCULAR HEMOGLOBIN 30.8 pg (28-32); MEAN CORPUSCULAR HGB CONC 31.5 g/dL (31-35); MEAN CORPUSCULAR VOLUME 97.6 fL (81-99); MONOCYTES # (AUTO) 0.7 (0.2-0.8); MONOCYTES % 8.3 % (4.4-11.3); NEUTROPHILS # (AUTO) 5.3 (2.1-6.9); NEUTROPHILS % 67.4 % (38.7-80.0); PLATELET COUNT 290 x10e3/uL (140-360); RED BLOOD COUNT 4.65 x10e6/uL (4.3-5.7); WHITE BLOOD COUNT 7.85 x10e3/uL (4.8-10.8)
[2024-06-17 18:39] LABS: ALBUMIN 3.8 g/dL (3.5-5.0); ALBUMIN/GLOBULIN RATIO 1.2 (0.8-2.0); ANION GAP 17.2 mmol/L (8-16); BILIRUBIN,TOTAL 0.6 mg/dL (0.2-1.2); CREATININE, SERUM 1.25 mg/dL (0.72-1.25); POTASSIUM 4.2 mmol/L (3.5-5.1); TOTAL PROTEIN 6.9 g/dL (6.5-8.1)
[2024-06-18] VITALS (11 sets, daily range): BP systolic 127–162; BP diastolic 72–99; PULSE 66–84; RESP 17–20; TEMP 97.7–98.6; O2SAT 96–100
[2024-06-18] MEDS: AMLODIPINE BESYLATE 5 MG TAB PO SCH (12:10)
[2024-06-18] MEDS: DUTASTERIDE 0.5 MG CAP PO SCH (12:10)
[2024-06-18] MEDS: SOLIFENACIN SUCCINATE 5 MG TAB PO SCH (12:10)
[2024-06-18] MEDS: TAMSULOSIN HCL 0.4 MG CAP PO SCH (20:15)
[2024-06-18] MEDS: BIMATOPROST(OPTH) 2.5 ML BOTTLE OP SCH (20:15)
[2024-06-18] MEDS: ONDANSETRON HCL INJ 2MG/ML 2ML 2 MG/ML VIAL IV PRN (20:15)
[2024-06-18] MEDS ORDERED: SIMVASTATIN 20 MG TAB PO SCH (21:00)
[2024-06-19] VITALS (9 sets, daily range): BP systolic 108–155; BP diastolic 66–92; PULSE 60–80; RESP 16–20; TEMP 97–98.1; O2SAT 89–99
[2024-06-19 09:09] LABS: BASOPHILS % 0.6 % (0.0-1.0); EOSINOPHILS # (AUTO) 0.1 (0.0-0.4); EOSINOPHILS % 2.2 % (0.0-6.0); HEMATOCRIT 30.4 % (38.2-49.6); HEMOGLOBIN 9.8 g/dL (14.0-18.0); LYMPHOCYTES # (AUTO) 1.3 (1.0-3.2); LYMPHOCYTES % 41.1 % (18.0-39.1); MEAN CORPUSCULAR HEMOGLOBIN 27.7 pg (28-32); MEAN CORPUSCULAR HGB CONC 32.2 g/dL (31-35); MEAN CORPUSCULAR VOLUME 85.9 fL (81-99); MONOCYTES # (AUTO) 0.2 (0.2-0.8); MONOCYTES % 7.2 % (4.4-11.3); NEUTROPHILS # (AUTO) 1.6 (2.1-6.9); NEUTROPHILS % 48.6 % (38.7-80.0); PLATELET COUNT 140 x10e3/uL (140-360); RED BLOOD COUNT 3.54 x10e6/uL (4.3-5.7); RED CELL DISTRIBUTION WIDTH 13.5 % (11.7-14.4); WHITE BLOOD COUNT 3.19 x10e3/uL (4.8-10.8)
[2024-06-19 09:47] LABS: ALBUMIN 2.9 g/dL (3.5-5.0); ALBUMIN/GLOBULIN RATIO 1.2 (0.8-2.0); ANION GAP 11.3 mmol/L (8-16); BILIRUBIN,TOTAL 1.5 mg/dL (0.2-1.2); CALCIUM 8.2 mg/dL (8.4-10.2); CREATININE, SERUM 0.78 mg/dL (0.72-1.25); TOTAL PROTEIN 5.3 g/dL (6.5-8.1)
[2024-06-19 09:52] LABS: POTASSIUM 3.3 mmol/L (3.5-5.1)
[2024-06-20] VITALS (8 sets, daily range): BP systolic 127–152; BP diastolic 67–86; PULSE 58–69; RESP 16–20; TEMP 97.5–98.4; O2SAT 95–98
[2024-06-20] MEDS: SODIUM CHLORIDE 0.9% 250ML 250 ML ONE (10:18)
[2024-06-21] VITALS: BP 141/82; PULSE 73; RESP 19; TEMP 97.3; O2SAT 96
[2024-06-21 04:30] VITALS: BP 142/66; PULSE 60; RESP 16; TEMP 98.2; O2SAT 97
[2024-06-21 08:00] VITALS: BP 130/92; PULSE 60; RESP 16; TEMP 97.9; O2SAT 97
[2024-06-21 09:46] VITALS: BP 130/92; PULSE 60; RESP 18; TEMP 97.9; O2SAT 97
[2024-06-21 12:28] VITALS: BP 123/63; PULSE 66; RESP 20; TEMP 98.2; O2SAT 96
[2024-06-21] MEDS ORDERED: DOXYCYCLINE HY100 MG PO (12:34)
[2024-06-21] MEDS ORDERED: ROBITUSSIN COU118 M4 PO (12:36)
== END 2024-06-21 14:05 | disposition home or self-care (01) | DRG 193 ==
LOC: ER 08:44 → ERHOLD 11:21 → MED/SURG3 13:10 → OBSVTOIN 06-16 12:21
PROVIDERS: ADMIT Internal Medicine; ATTEND Internal Medicine
DX: J10.00 Influenza due to other identified influenza virus with unspecified type of pneumonia (principal); G93.41 Metabolic encephalopathy; M62.82 Rhabdomyolysis; N17.9 Acute kidney failure, unspecified; R62.7 Adult failure to thrive; E88.09 Other disorders of plasma-protein metabolism, not elsewhere classified; Z78.1 Physical restraint status; I11.0 Hypertensive heart disease with heart failure; I50.9 Heart failure, unspecified; I25.10 Atherosclerotic heart disease of native coronary artery without angina pectoris; N40.0 Benign prostatic hyperplasia without lower urinary tract symptoms; R00.0 Tachycardia, unspecified; Z11.52 Encounter for screening for COVID-19; H40.9 Unspecified glaucoma; R45.1 Restlessness and agitation; Z68.28 Body mass index [BMI] 28.0-28.9, adult
CPT/HCPCS: 36415; 70450; 71045; 71046; 73521; 80053; 81001; 82550; 83605; 84484; 85025; 85610; 85730; 87040; 87086; 93005; 99284; G0378; J0696; J2405; J7030; J7050